=== PATIENT | female | born 1980 | race Caucasian/White ===

== ENCOUNTER 2018-12-23 11:06 | Day surgery (SDC) | payer OTHER ==
[~2018-12-23 11:06] MED LIST: DOXYCYCLINE HY100 MG PO; NAPROXEN500 MG PO
[2018-12-23] MEDS ORDERED: MONODOX100 MG PO (16:09)
[2018-12-23] MEDS ORDERED: EC-NAPROSYN375 MG PO (16:10)
== END 2018-12-23 21:10 | disposition home or self-care (01) ==
LOC: CIR.AMB 11:06
DX: D25.9 Leiomyoma of uterus, unspecified (principal); N84.0 Polyp of corpus uteri